=== PATIENT | male | born 1940 | race Two or more races ===

== ENCOUNTER → 2024-03-02 07:42 | Outpatient (REF) | payer OTHER, SELFPAY | LOC: RCS 07:42 | PROVIDERS: ATTENDING PHYSICIAN Internal Medicine Cardiovascular Disease; FAMILY PHYSICIAN Family Medicine | DX: R00.1 Bradycardia, unspecified (principal); I49.1 Atrial premature depolarization; I49.9 Cardiac arrhythmia, unspecified; I10 Essential (primary) hypertension; R03.0 Elevated blood-pressure reading, without diagnosis of hypertension | CPT/HCPCS: 93225; 93226; 93306 ==

== ENCOUNTER → 2024-03-20 11:33 | Outpatient (REF) | payer OTHER, SELFPAY | LOC: DHCBC/DCA 11:33 | PROVIDERS: ATTENDING PHYSICIAN Internal Medicine Cardiovascular Disease; FAMILY PHYSICIAN Family Medicine | DX: I34.0 Nonrheumatic mitral (valve) insufficiency (principal); I48.92 Unspecified atrial flutter; I10 Essential (primary) hypertension; I49.1 Atrial premature depolarization; R00.1 Bradycardia, unspecified | CPT/HCPCS: 78452; 93017; A9500; J2785 ==